=== PATIENT | male | born 1990 | race Caucasian/White ===

== ENCOUNTER 2017-05-19 20:53 | Inpatient (IN) ==
[2017-05-19] MEDS ORDERED: QUELICIN ONE (20:59)
[2017-05-19] MEDS ORDERED: DIPRIVAN 1% 3,000 MG/300 ML BOTTLE ONE (21:10)
[2017-05-19] MEDS ORDERED: NS 1,000 ML IV ONE ×2 (21:12→23:28)
[2017-05-19] MEDS ORDERED: NARCAN IV ONE (21:12)
[2017-05-19] MEDS ORDERED: QUELICIN IV ONE (21:13)
[2017-05-19] MEDS ORDERED: AMIDATE IV ONE (21:13)
[2017-05-19] MEDS ORDERED: DIPRIVAN 1% 1,000 MG/100 ML BOTTLE IV SCH (21:15)
[2017-05-19 21:25] LABS: MANUAL DIFF NEEDED? NO; URINE CULTURE NEEDED? NO; URINE MICRO REVIEW NEEDED? NO; URINE SOURCE CLEAN CATCH
[2017-05-19 21:29] LABS: BASO% 0.8 % (0.0-0.8); EOS# 0.14 X1000 (0.0-0.7); EOS% 1.1 % (0.0-10.0); HEMOGLOBIN 15.5 g/dL (14.0-18.0); IMM GRAN# 0.04 X1000 (0.0-0.04); IMM GRAN% 0.3 % (0.0-0.5); LYMPH# 4.64 X1000 (1.2-3.4); LYMPH% 35.8 % (20.5-51.1); MCH 33.1 PG (27-31); MCHC 34.4 g/dL (33-37); MCV 96.2 FL (81-99); MONO# 0.94 X1000 (0.11-0.59); MONO% 7.3 % (1.7-9.3); MPV 11.5 FL (7.4-10.4); NEUT% 54.7 % (42.2-75.2); PLT 235 X1000 (130-400); RBC 4.68 XMIL (4.7-6.1)
[2017-05-19 21:30] LABS: ALLEN TEST YES; BE -5.3 mmoll (-3.0-3.0); BLOOD TYPE ARTERIAL; DRAW SITE R RADIAL; METHB 1.1 % (0.0-1.5); O2(CT) 21.2 mL/dL (15.0-23.0); PCO2(98.6) 53 mmHg (35-45); PO2(98.6) 518 mmHg (60-100); SAMPLE BLOOD; SAO2 100.3 % (95.0-100.0); THB 14.9 g/dL (11.5-17.4); pH(98.6) 7.24 (7.35-7.45)
[2017-05-19 21:30] LABS: BILIRUBIN URINE NEGATIVE (NEGATIVE); BLOOD URINE NEGATIVE (NEGATIVE); COLOR STRAW; GLUCOSE URINE NEGATIVE (NEGATIVE); LEUKOCYTES URINE NEGATIVE (NEGATIVE); NITRITE URINE NEGATIVE (NEGATIVE); PROTEIN URINE NEGATIVE (NEGATIVE); SP GRAVITY URINE 1.001; TURBIDITY URINE CLEAR (CLEAR); UROBILINOGEN URINE NORMAL (NORMAL)
[2017-05-19 21:31] LABS: MODALITY AMBU BAG
[2017-05-19 21:32] LABS: UR EPITHELIAL CELLS <10 /HPF (<10); URINE BACTERIA NEGATIVE /HPF; URINE RBC <10 /HPF (<10); URINE WBC <10 /HPF (<10)
[2017-05-19 21:42] LABS: UR AMPHETAMINES QUAL NONE DETECTED (NONE DETECT); UR BARBITUATES QUAL NONE DETECTED (NONE DETECT); UR BENZODIAZEPIN QUAL NONE DETECTED (NONE DETECT); UR CANNABINOIDS QUAL NONE DETECTED (NONE DETECT); UR COCAINE QUAL NONE DETECTED (NONE DETECT); UR METHADONE QUAL NONE DETECTED (NONE DETECT); UR OPIATES QUAL NONE DETECTED (NONE DETECT); UR OXYCODONE QUAL NONE DETECTED (NONE DETECT); UR PCP QUAL NONE DETECTED (NONE DETECT)
[2017-05-19 21:52] LABS: ACETAMINOPHEN < 1.2 ug/mL (10-30); AGAP 20; ALKALINE PHOSPHATASE 67 U/L (32-122); BUN 12 mg/dL (8-22); CALCIUM 9.4 mg/dL (8.8-10.2); CHLORIDE 102 mmol/L (98-107); COSMO 285; GOT 22 U/L (10-34); GPT 22 U/L (10-44); POTASSIUM 3.1 mmol/L (3.5-5.1); SODIUM 143 mmol/L (136-145); TCO2 21 mmol/L (25-35); TOTAL BILIRUBIN 0.61 mg/dL (0.20-1.00); TOTAL PROTEIN 7.4 g/dL (6.3-8.3)
[2017-05-19] MEDS ORDERED: SODIUM CHLORIDE 0.9% INJ SCH (23:28)
[2017-05-19] MEDS ORDERED: NEXIUM IV SCH (23:28)
[2017-05-19] MEDS ORDERED: ZOFRAN IV PRN (23:28)
[2017-05-20] MEDS: DIPRIVAN 1% 1,000 MG/100 ML BOTTLE IV SCH ×3 (01:18→07:21)
[2017-05-20 04:48] LABS: ALLEN TEST YES; BE -2.5 mmoll (-3.0-3.0); BLOOD TYPE ARTERIAL; DRAW SITE R RADIAL; METHB 0.8 % (0.0-1.5); O2(CT) 21.1 mL/dL (15.0-23.0); PCO2(98.6) 50 mmHg (35-45); PO2(98.6) 159 mmHg (60-100); SAMPLE BLOOD; SAO2 99.6 % (95.0-100.0); SRATE 16 BPM; THB 15.2 g/dL (11.5-17.4); TVOL 500 mL
[2017-05-20 04:50] LABS: MODALITY VENTILATOR
[2017-05-20 05:09] LABS: MANUAL DIFF NEEDED? NO
[2017-05-20 05:15] LABS: BASO% 0.2 % (0.0-0.8); EOS# 0.11 X1000 (0.0-0.7); EOS% 0.7 % (0.0-10.0); HEMATOCRIT 42.5 % (42.0-52.0); HEMOGLOBIN 14.5 g/dL (14.0-18.0); IMM GRAN# 0.03 X1000 (0.0-0.04); IMM GRAN% 0.2 % (0.0-0.5); LYMPH# 3.07 X1000 (1.2-3.4); LYMPH% 19.4 % (20.5-51.1); MCH 33.5 PG (27-31); MCHC 34.1 g/dL (33-37); MCV 98.2 FL (81-99); MONO# 1.08 X1000 (0.11-0.59); MONO% 6.8 % (1.7-9.3); MPV 11.1 FL (7.4-10.4); NEUT% 72.7 % (42.2-75.2); PLT 200 X1000 (130-400); RBC 4.33 XMIL (4.7-6.1)
[2017-05-20 05:47] LABS: AGAP 14; BUN 11 mg/dL (8-22); CALCIUM 8.7 mg/dL (8.8-10.2); CHLORIDE 112 mmol/L (98-107); COSMO 291; POTASSIUM 3.8 mmol/L (3.5-5.1); SODIUM 147 mmol/L (136-145); TCO2 21 mmol/L (25-35)
[2017-05-20] MEDS ORDERED: AMIDATE ONE (06:01)
--- NOTE | 2017-05-20 06:09 | EKG Report ---
Test Performed on : 05/20/2017 05:02:31 AM Test Reason : chest pain Blood Pressure : / mmHG Vent. Rate : 084 BPM Atrial Rate : 084 BPM P-R Int : 136 ms QRS Dur : 094 ms QT Int : 380 ms P-R-T Axes : 078 079 074 degrees QTc Int : 449 ms Normal sinus rhythm. Biatrial enlargement Incomplete right bundle branch block Abnormal ECG No previous ECGs available Confirmed by iLza Landaverde MD ([id number]) on 05/20/2017 9:07:28 AM
--- NOTE | 2017-05-20 07:16 | Diag Imaging Result Doc PS360 ---
EXAM: HEAD W/O CONTRAST HISTORY: AMS TECHNIQUE: CT of the head without contrast COMMENT: There is mucosal thickening and mucous retention cyst formation in the right maxillary sinus and a mucus retention cyst is also present in the right sphenoid sinus. There is mucosal thickening throughout much of the ethmoid air cells and the left frontal sinus. There is a mucous retention cyst in the right frontal sinus. There is no evidence of intracranial mass effect, bleed or abnormal extra-axial fluid collection. There are no previous studies. IMPRESSION: Chronic sinus disease. No evidence of acute intracranial disease. Electronically signed by Carter Emanuel 05/20/2017 7:14 AM
--- NOTE | 2017-05-20 07:19 | Diag Imaging Result Doc PS360 ---
EXAM: CHEST-PORTABLE INDICATION: vent TECHNIQUE: One view COMPARISON: 05/19/2017 FINDINGS: Support tubes and lines are in stable positions. The lungs remain clear. No new consolidations are appreciated. There is no discrete pleural fluid collection or pneumothorax. Cardiac silhouette is stable. IMPRESSION: Stable chest. Electronically signed by Rakesh Parish 05/20/2017 7:17 AM
--- NOTE | 2017-05-20 07:39 | Diag Imaging Result Doc PS360 ---
EXAM: CHEST-PORTABLE INDICATION: et tube placement TECHNIQUE: One view COMPARISON: None. FINDINGS: There is a newly placed ET tube and NG tube. The NG tube projects below the diaphragm and is assumed to be in the stomach in the expected position. The ET tube projects over the trachea and above the asmita at about the T3 level. The lungs are grossly clear. There is no discrete pleural fluid collection or pneumothorax. The cardiomediastinal silhouette and central vasculature are grossly unremarkable. IMPRESSION: Recent placement of NG tube and ET tube as described. No definite acute pathology, otherwise. Electronically signed by Rakesh Parish 05/20/2017 7:37 AM
[2017-05-20] MEDS ORDERED: LOVENOX SUBQ SCH (09:00)
[2017-05-20] MEDS ORDERED: NS 1,000 ML IV SCH (09:13)
[2017-05-20] MEDS ORDERED: M.V.I.-12 10 ML, FOLIC ACID 1 MG, MAGNESIUM SULFATE 1 GM, THIAMINE 100 MG in NS 1,000 ML IV ONE (10:00)
[2017-05-20 10:15] LABS: ALLEN TEST YES; BE -2.9 mmoll (-3.0-3.0); BLOOD TYPE ARTERIAL; DRAW SITE R RADIAL; METHB 1.3 % (0.0-1.5); PCO2(98.6) 41 mmHg (35-45); PO2(98.6) 90 mmHg (60-100); SAMPLE BLOOD; SAO2 98.3 % (95.0-100.0); THB 15.6 g/dL (11.5-17.4); pH(98.6) 7.35 (7.35-7.45)
[2017-05-20 10:16] LABS: MODALITY VENTILATOR
--- NOTE | 2017-05-20 10:21 | HISTORY AND PHYSICAL ---
PRIMARY CARE PROVIDER: Unknown. CHIEF COMPLAINT: Unresponsive. HISTORY OF PRESENT ILLNESS: This is a 26-year-old, male, who was apparently found unresponsive on someone's porch. It was not his own porch. He was given nasal Narcan in the field. He was minimally responsive to painful stimulus. He did have a gag reflex. He had 1 episode of vomiting before arrival. On arrival to the emergency room he was given a second 2 mg IV dose of Narcan which had little to no effect. The patient was intubated related to his vomiting for fear of airway control. A CT of his head was obtained which showed no acute intracranial process. A chest x-ray was obtained to verify ET tube placement and it was correctly placed. The patient will be admitted to the medical floor for further evaluation and treatment. PAST MEDICAL HISTORY: None of note. PREVIOUS SURGICAL HISTORY: Unable to obtain. SOCIAL HISTORY: According to an old ER charting, the patient uses alcohol and tobacco. Unknown how frequently the patient drinks, but the ER charting states that he has 16-20 drinks per drinking episode and smokes roughly 1 pack of cigarettes per day. He denied a history of illicit drug use or abuse at that time. FAMILY HISTORY: Unable to obtain related to patient's medical condition. ALLERGIES: No known drug allergies. HOME MEDICATIONS: Again unable to obtain. It appears the patient may not take any chronic home medications. REVIEW OF SYSTEMS: A 14-point review of systems could not be obtained as the patient was intubated and sedated with propofol. Pertinent positives for admission are listed above in the HPI. PHYSICAL EXAMINATION: VITAL SIGNS: Temperature 97.9 degrees, pulse 90, respirations 20, blood pressure 109/79, oxygen saturation 100% on mechanical ventilation. GENERAL: A 26-year-old male lying in the ER stretcher mechanically ventilated and sedated on propofol. No acute distress at this time. HEENT: Head is atraumatic, normocephalic. Pupils are fixed, very sluggishly reactive to light. Extraocular eye movement could not be tested related to the patient's overall condition. ET-tube was noted in place. Oral mucosa was dry. NECK: Supple. No JVD. No thyromegaly. Trachea is midline. No cervical lymphadenopathy. CARDIAC: S1, S2 appreciated. No murmurs, gallops, rubs. Regular rhythm. LUNGS: Clear to auscultation bilaterally. No rhonchi, wheezes or rales. Patient is mechanically ventilated, but was over breathing the ventilator prior to sedation. ABDOMEN: Soft, nondistended, nontender. Bowel sounds present in all 4 quadrants. Normoactive. No pulsatile mass. No organomegaly. EXTREMITIES: No clubbing, cyanosis, or edema. 2+ pedal pulses bilaterally. GENITOURINARY: Orozco catheter in place draining clear yellow urine, otherwise deferred. NEUROLOGICAL: Could not be assessed. Patient is intubated and sedated on propofol. SKIN: What appeared to be track mosquera from IV drug use noted on the left arm and possibly on the feet. Multiple tattoos are noted. Otherwise, warm, dry and intact. DIAGNOSTIC DATA: CT of the head shows no acute intracranial process. Portable chest x-ray NAD. It did show ET tube was in place. LABORATORY DATA: WBC 12.95, hemoglobin 15.5, hematocrit 45, platelet count 235. ABG: A pH 7.24, pCO2 53, PO2 518, bicarbonate 20.7. This was on Ambu bag. Sodium 143, potassium 3.1, chloride 102, carbon dioxide 21, BUN 12, creatinine 0.9, glucose 99. CK and troponin within normal limits. Urine unremarkable. Toxicology screen negative. Serum alcohol 344. ASSESSMENT AND PLAN: 1. Toxic encephalopathy likely related to alcohol and possibly intravenous drug use. The patient is intubated to be placed in the ICU for close monitoring. He will receive a liter of bolus in the emergency room, as well as normal saline at 150 mL an hour. Hopeful that this will reverse as the affects of the alcohol wear off. 2. Alcohol use and abuse and possible illicit drug use. As noted above, the patient's serum alcohol was 344 while no substances were noted in his toxicology screen. It did appear that he has used some form of intravenous substance related to the mosquera on his arms and his feet. Again, supportive therapy will be used at this time. 3. Inability to protect airway versus acute respiratory failure as noted above. Patient was intubated. Arterial blood gases were adequate on Ambu bag oxygen. Will wean vent as tolerated. Consult pulmonology for further assistance. Patient is sedated on propofol. 4. Tobacco use and abuse. Smoking cessation could not be gone over with the patient at this time as he is sedated. 5. Venous thromboembolism and gastrointestinal prophylaxis while intubated. The patient was placed on proton pump inhibitor, as well as Lovenox. We will discontinue when patient is able to be weaned off the ventilator and to properly ambulate. Further recommendations per patient's clinical course. Dictated by NELSON Alfred for Sen Acevedo MD cc: NELSON Alfred MD pt examined, agree with above APENOT MTDD
--- NOTE | 2017-05-20 11:51 | PROGRESS NOTE ---
DATE: 05/20/2017 SUBJECTIVE: This patient is still on mechanical ventilation and sedated. He was recently admitted. I checked his urine toxicology and only the alcohol level was high, at 344. I am not quite sure about his past medical history. I checked back his labs and I found out that this patient had a valproic acid checked on 07/06/2016 and the level was 62.3, so probably this patient has some kind of past medical history related to seizures. I noticed some scratches and bruises of his body, but they do not look new. OBJECTIVE: Vital Signs: Temperature 98.4 degrees, pulse 71, respiratory rate 21, blood pressure 91/53, oxygen saturation 100% on mechanical ventilation, 90% oxygen flow. HEENT: Head normocephalic. No trauma. PERRLA. Neck: Supple. No JVD. No masses. Central trachea. Lungs: Bilateral scattered crackles. No wheezing. Abdomen: Soft, nontender, nondistended. No hepatosplenomegaly. Extremities: No edema. No clubbing. No cyanosis. He has some bruises, mostly at the level of the left upper arm. No signs of needle sticks. Neurological: The patient is sedated and on mechanical ventilation. LABORATORY: WBC 15.8, hemoglobin 14.5, hematocrit 42.5, platelets 200,000. Sodium 147, potassium 3.8, chloride 112, bicarbonate 21, BUN 11, creatinine 0.7, glucose 83, calcium 8.7. Troponins negative x2. ASSESSMENT AND PLAN: 1. Altered mental status. This patient's alcohol level was 344. I am not quite sure if this patient had some kind of drugs on top of the alcohol. There is no acute kidney injury. I will put this patient on normal saline and also he will get a banana bag. For now, we will continue with mechanical ventilation. Pulmonary Department has been consulted. 2. Hypernatremia. Will continue to monitor. I have placed this patient on fluids. 3. Deep vein thrombosis prophylaxis with Lovenox. 4. Gastrointestinal prophylaxis. Continue with PPIs IV. CRITICAL CARE TIME: Thirty-five minutes. cc: Ryland Martinez MD
[2017-05-20 16:47] VITALS: BP 109/57
--- NOTE | 2017-05-21 21:50 | DISCHARGE SUMMARY ---
ADMISSION DATE: 05/19/2017 DISCHARGE DATE: 05/20/2017 DATE OF ADMISSION: 05/19/2017. DATE OF AMA: 05/20/2017. PERTINENT PROCEDURES: Head CT: Showed chronic sinus disease. No evidence of acute intracranial disease. Chest x-ray: Showed recent placement of NG tube and ET tube. Stable chest. DISCHARGE DIAGNOSES: 1. Toxic metabolic encephalopathies secondary to patient's alcohol level of 344. 2. Hypernatremia. 3. Alcohol use and abuse, possibly illicit drug use as well. 4. Acute respiratory failure secondary to alcohol and possible IV drug use. The patient was intubated and moved to the ICU. The patient left against medical advice/AMA. 5. Tobacco use and abuse. Unable to do smoking cessation secondary to the patient being mechanically intubated and sedated and then left AMA. HOSPITAL COURSE: Briefly, Mr. Liu is a 26-year-old male who was found unresponsive on someone's porch. He was given Narcan in the field. He was minimally responsive to painful stimulus. He did have a gag reflex. He had 1 episode of vomiting before arrival. On arrival to the emergency department, he was given 2nd IV dose of Narcan with little to no effect. The patient was intubated related to his vomiting for fear of airway control. A CT of the head obtained that showed no acute intracranial process. A chest x-ray verified ET and NG tube correctly. The patient was admitted to the ICU. Did have an alcohol level of 344. He did receive IV antibiotics as well as banana bags. There were no cirrhosis noted on his toxicology screen, but it did appear that he had used some form of IV substance related to the mosquera on his arms and in his feet. They continued with supportive care in the ICU. Pulmonology was consulted. Unable to do tobacco cessation secondary to the patient being on the vent and sedated. Once he was extubated, the patient left against medical advice/AMA. This is NELSON Godinez, doing an AMA discharge summary for Dr. Galaviz. Dictated by NELSON Godinez for Ryland Martinez MD cc: Ryland Martinez MD [facility]
--- NOTE | 2017-05-22 06:23 | PROVIDER DOCUMENTATION ---
This chart was entered by Alida Wong Scribe, acting as scribe for Kumar He MD. [id number] Abuse/Overdose - General Chief Complaint: Overdose Stated Complaint: opiate ingestion Time Seen by Provider: 05/19/17 21:10 Source: EMS Unable to obtain history due to:: altered (NOT ALERT IN ED on arrival) Allergies/Adverse Reactions: Allergies Allergy/AdvReac Type Severity Reaction Status Date / Time No Known Allergies Allergy Verified 05/19/17 21:28 Home Medications: Home Medication List Medication Instructions Recorded Confirmed Last Taken Type Unobtainable [Home Meds 05/19/17 05/19/17 Unknown History Unobtainable] - History of Present Illness-Drug/Alcohol Nature of Presenting Problem: 26 Y/O M presents to ED with overdose. Pt was found laying on a strangers porch , and EMS states that he wakens to painful stimulation. Pt had possible opiate overdose. Pt had V in mouth on arrival to ED. This episode of drinking or use began:: this evening Severity: reports: severe Situational problems related to:: reports: N/A - Overdose How did the ingestion/other suicidal act come to attention?: Pt was found on strangers porch Suicide Risk Assessment: drug or ETOH abuse Review of Systems - Adult - REVIEW OF SYSTEMS - ADULT ROS:: unobtainable per condition (pt was non alert in ED.) Constitutional: denies: chills, fever Eyes: reports: no symptoms reported Ears, Nose, Mouth & Throat: reports: no symptoms reported Cardiovascular: reports: no symptoms reported Respiratory: reports: no symptoms reported Gastrointestinal: denies: abdominal pain, diarrhea, nausea, vomiting Genitourinary: reports: no symptoms reported Musculoskeletal: reports: no symptoms reported Integumentary: reports: no symptoms reported Neurological: reports: no symptoms reported Psychiatric: reports: no symptoms reported Endocrine: reports: no symptoms reported Hematologic/Lymphatic: reports: no symptoms reported Allergic/Immunologic: reports: no symptoms reported All Other Systems: Reviewed and Negative Past History - Adult - PAST MEDICAL HISTORY-ADULT Review of Records: reports: Old Records Reviewed, Nursing Assessment Review, Medications Reviewed, Social history reviewed & non-contributory. Major Childhood Illnesses: reports: denies history Cardiovascular: reports: denies history Respiratory: reports: denies history Gastrointestinal: reports: denies history Genitourinary: reports: denies history Musculoskeletal: reports: denies history Neurological: reports: denies history Psychiatric: reports: denies history Endocrine/Immune: reports: denies history Other Conditions: reports: denies history - PRIOR SURGERIES/PROCEDURES Surgical/Procedure History: reports: none - PRIOR HOSPITALIZATIONS Prior Hospitalizations: reports: none - IMMUNIZATION STATUS Childhood Immunizations: See Nurse Assessment Flu Vaccine: See Nurse Assessment - FAMILY HISTORY Family History: reviewed, not pertinent Physical Exam-General - CONSTITUTIONAL General Appearance: severe distress. negative: alert (wakens with painful stimulation) - EYES Eyes: other (constricted poorly reactive) - HEAD, EARS, NOSE, MOUTH & THROAT HENMT: negative: normocephalic/atraumatic (2 cm cauliflower growth on his left temporal area), dental decay - NECK Neck: full range of motion, supple, normal inspection - RESPIRATORY Respiratory: lungs clear, normal breath sounds - CARDIOVASCULAR Cardiovascular: regular rate, rhythm - GASTROINTESTINAL (ABDOMEN) Abdominal Exam: non tender, soft - MUSCULOSKELETAL Back Exam: no CVA tenderness, no vertebral tenderness Extremity: normal range of motion - SKIN Integumentary: normal color, normal turgor Progress - PLAN OF CARE/RESULTS Progress/Plan/Lab Results: Orders Category Date Time Status Admit - [facility] Routine AdmDCTranf 05/19/17 23:28 Ordered Activity - Bed Rest with BRP ORDERED Care 05/19/17 23:28 Active Activity - Strict Bedrest ORDERED Care 05/19/17 23:28 Active Orozco Cath Insertion ORDERED Care 05/19/17 21:12 Completed Intake and Output-Strict ORDERED Care 05/19/17 23:28 Active Neurological Check Q 4-HR ASSESS Care 05/19/17 23:28 Active Nursing- MD Consult Request ROUTINE Care 05/19/17 23:28 Completed Saline Loc NOW Care 05/19/17 21:11 Completed Vital Signs Order ORDERED Care 05/19/17 23:28 Completed Vital Signs Order Q1H Care 05/19/17 23:28 Completed Z-Document. for Tele Applied ORDERED Care 05/19/17 23:28 Active Physician/Provider Consults Routine Cons 05/20/17 08:00 Ordered NPO Diet 05/19/17 22:04 Completed CHEST-PORTABLE [RAD] Stat Exams 05/19/17 21:05 Completed HEAD W/O CONTRAST [CT] Stat Exams 05/19/17 21:11 Completed ABG [RESP] Routine Lab 05/19/17 21:20 Completed ACETAMINOPHEN [TDM] Stat Lab 05/19/17 20:57 Completed ALCOHOL BLOOD Stat Lab 05/19/17 20:57 Completed BASIC METABOLIC PANEL [CHEM] Routine Lab 05/20/17 04:40 Completed CBC WITH DIFF [HEME] Routine Lab 05/20/17 04:40 Completed CBC WITH ELECTRONIC DIFF [HEME] Stat Lab 05/19/17 20:57 Completed CK PROFILE [SP CHEM] Stat Lab 05/19/17 20:57 Completed COMPREHENSIVE METABOLIC PANEL [CHEM] Stat Lab 05/19/17 20:57 Completed MAGNESIUM [CHEM] Stat Lab 05/19/17 20:57 Completed SALICYLATES [TDM] Stat Lab 05/19/17 20:57 Completed SPUTUM CULTURE WITH GRAM STAIN [RM] Routine Lab 05/19/17 22:15 Results TROPONIN T Routine Lab 05/20/17 04:40 Completed TROPONIN T Stat Lab 05/19/17 20:57 Completed TSH Routine Lab 05/20/17 04:40 Completed URINALYSIS W/POSS RFLX CULT-1 [URINALYSIS] Stat Lab 05/19/17 20:57 Completed URINE DRUG SCREEN Stat Lab 05/19/17 20:57 Completed 0.9% Sodium Chloride Inj [Ns] 1,000 ml Med 05/19/17 23:28 Discontinued IV 150 mls/hr 0.9% Sodium Chloride Inj [Ns] 1,000 ml Med 05/19/17 21:12 Discontinued IV 999 mls/hr Enoxaparin [Lovenox] Med 05/20/17 09:00 Discontinued 40 mg SUBQ Q24H Esomeprazole [Nexium] Med 05/19/17 23:28 Discontinued 40 mg IV Q24H Etomidate [Amidate] Med 05/19/17 21:13 Discontinued 20 mg IV NOW ONE Naloxone [Narcan] Med 05/19/17 21:12 Discontinued 2 mg IV NOW ONE Ondansetron [Zofran] Med 05/19/17 23:28 Discontinued 4 mg IV Q4H PRN PRN Propofol [Diprivan 1%] Med 05/19/17 21:10 Discontinued 1,000 mg in 100 ml .ROUTE As Directed Propofol [Diprivan 1%] Med 05/19/17 21:15 Discontinued 1,000 mg in 100 ml IV Per Protocol Propofol [Diprivan 1%] Med 05/19/17 23:00 Discontinued 1,000 mg in 100 ml IV Per Protocol Sodium Chloride 0.9% Med 05/19/17 23:28 Discontinued 10 ml INJ DIRECTED Succinylcholine [Quelicin] Med 05/19/17 21:13 Discontinued 150 mg IV NOW ONE Succinylcholine [Quelicin] Med 05/19/17 20:59 Discontinued 200 mg .ROUTE .STK-MED ONE Telemetry [OM.EQ] Routine Oth 05/19/17 23:28 Active Vent Wean [Daily Vent Weaning Per RT] Routine Oth 05/19/17 23:28 Completed EKG [EKG] Routine Ther 05/20/17 08:00 Completed Transfer/Admit Order [TRANSFER] Routine Transfer 05/19/17 22:01 Completed RAZA Wilson did intubation Result Diagrams: 05/20/17 04:40 05/20/17 04:40 - CONSULTS/PCP/HOSPITALIST Notification #1 *Consult/PCP/Hospitalist*: Time Discussed: 22:01 Reason/Comments: Admit Consult Disposition: Admit (Admit accepted) Procedures - INTUBATION Time of Intubation: 21:06 Airway Evaluation: Copious Secretions Mallampati Class: 3 Intubation Method: orotracheal Equipment: ETT Tube Size (cm): 8.0 Pretreated with 100% Oxygen?: Yes Breath Sounds after Intubation: equal ETT Primary Tube Confirmation: Capnometry CO2 Change, Direct Visualization, Chest Rise and Fall, Tube placement verified on XRAY Intubation Complications: oral-unsuccessful attempt (1st attempt 21:06 ETT 8.0 2nd attempt ETT 8.0 21:07) Vent Settings: See Respiratory Therapy Notes Procedure Comment: No complications Departure - Departure Date of Disposition Decision: 05/19/17 Time of Disposition Decision: 22:16 DIAGNOSIS: Overdose Disposition: ADMITTED INPATIENT 09 Certified Medical Emergency: Emergent Condition: Good - Critical Care Note This patient required my direct & personal management of CC.: Yes Total Time (mins): 30 Critical Care Statement: This patient required my direct personal management to treat or rule out processes, the absence of which, could potentiallly result in sudden, clinically significant life or limb threatening deterioration. This chart was documented by the indicated scribe, (Alida Wong, Scrteo) and accurately reflects the services I performed and decisions made by me, Kumar He MD, as attested by the provider's signature.
== END 2017-05-20 17:44 | disposition left against medical advice (07) ==
LOC: ED 20:53 → SUATTDRO 23:01 → ICU 23:01
PROVIDERS: ATTEND Internal Medicine